=== PATIENT | male | born 1985 | race American Indian/Alaskan Native ===

== ENCOUNTER 2017-05-07 11:38 | Emergency (ER) | payer BC ==
[2017-05-07 11:45] VITALS: BMI 28.5
[2017-05-07 11:49] VITALS: TEMP 98.2
--- NOTE | 2017-05-07 12:03 | C.PDOC ---
History Of Present Illness 32 year old male with no medical PMH, complains of epigastric and LUQ pain for 3 days. Today the pain radiates into the left side of chest which concerned him. Patient has similar abdominal pain for 8 months that worsens after eating. Patient was seen by PMD with a US done that was normal. Patient is currently taking no meds for pain. Denies fever, chills, nausea, or vomiting. No SOB or palpitations. Time Seen by Provider: 05/07/17 12:02 Chief Complaint (Nursing): Chest Pain History Per: Patient History/Exam Limitations: no limitations Onset/Duration Of Symptoms: Days (3) Severity: Mild Location Of Pain/Discomfort: Epigastric, LUQ Radiation Of Pain To:: Chest (Left side) Quality Of Discomfort: "Pain" Associated Symptoms: denies: Fever, Chills, Nausea, Vomiting Exacerbating Factors: None Alleviating Factors: None Recent travel outside of the [place]: No Additional History Per: Patient Past Medical History Reviewed: Historical Data, Nursing Documentation, Vital Signs Vital Signs: Last Vital Signs Temp 98.2 F 05/07/17 11:44 Pulse 72 05/07/17 14:08 Resp 18 05/07/17 14:08 BP 119/81 05/07/17 14:08 Pulse Ox 100 05/07/17 14:08 - Medical History PMH: No Chronic Diseases Surgical History: No Surg Hx Family History: States: Unknown Family Hx - Social History Hx Alcohol Use: No Hx Substance Use: No - Immunization History Hx Tetanus Toxoid Vaccination: No Hx Influenza Vaccination: No Hx Pneumococcal Vaccination: No Review Of Systems Constitutional: Negative for: Fever, Chills Cardiovascular: Positive for: Chest Pain (Left sided, radiation). Negative for : Palpitations Respiratory: Negative for: Shortness of Breath Gastrointestinal: Positive for: Abdominal Pain (LUQ and epigastric). Negative for: Nausea, Vomiting Skin: Negative for: Rash Neurological: Negative for: Weakness, Numbness, Headache, Dizziness Physical Exam - Physical Exam Appears: Non-toxic, No Acute Distress Skin: Normal Color, Warm, Dry Head: Atraumatic, Normacephalic Eye(s): bilateral: Normal Inspection, EOMI Oral Mucosa: Moist Neck: Normal ROM, Supple Chest: Symmetrical, No Tenderness Cardiovascular: Rhythm Regular, No Murmur Respiratory: Normal Breath Sounds, No Rales, No Rhonchi, No Wheezing Gastrointestinal/Abdominal: Soft, Tenderness (Epigastric and LUQ) Back: Normal Inspection, No CVA Tenderness Extremity: Bilateral: Atraumatic, Normal Color And Temperature, Normal ROM Neurological/Psych: Oriented x3, Normal Speech Gait: Steady ED Course And Treatment - Laboratory Results Result Diagrams: 05/07/17 12:38 05/07/17 12:38 ECG: Interpreted By Me, Viewed By Me ECG Rhythm: Sinus Rhythm ECG Interpretation: No Acute Changes Rate From EC O2 Sat by Pulse Oximetry: 100 (RA) Pulse Ox Interpretation: Normal Medical Decision Making Medical Decision Making: Impression: epigastric and LUQ abdominal pain Differential diagnosis includes but not limited to: gastritis, PUD, pancreatitis , constipation Plan: * EKG * Labs * Xray Progress: EKG reviewed with no ischemic changes. XRay shows no mechanical obstruction 1324 On reevaluation, patient reports feeling better and in no distress. Vital signs stable. No longer has any chest or abdominal pain. He is tolerating PO. Discussed results with patient and provide copy of reports. advise dietary changes and will give Rx. Instruct to follow up with MIRANDA Fonseca and GI. Disposition Counseled Patient/Family Regarding: Diagnosis, Need For Followup, Rx Given - Disposition Referrals: Barak Clemente [Staff Provider] - Aashish Fonseca DNP, [employer] [Advanced Practice Nurse] - Disposition: HOME/ ROUTINE Disposition Time: 13:29 Condition: STABLE Additional Instructions: Your labs and XRay were normal. Your pain is likely due to gastritis. Please take Omeprazole daily and follow the diet to help with symptoms. It is important that your follow up with your primary medical doctor and GI for further evaluation and testing including possible endoscopy. Return to the emergency department at any time if symptoms persist or worsen. Prescriptions: Omeprazole 40 mg PO DAILY #30 capsule. Instructions: Gastritis (DC), Diet for Ulcers and Gastritis (ED) Forms: [employer] (Georgian) - POA Present On Arrival: None - Clinical Impression Clinical Impression: Upper abdominal pain, Gastritis - Scribe Statement The provider has reviewed the documentation as recorded by the Shanitaibe Sparkle calvo All medical record entries made by the Scribe were at my direction and personally dictated by me. I have reviewed the chart and agree that the record accurately reflects my personal performance of the history, physical exam, medical decision making, and the department course for this patient. I have also personally directed, reviewed, and agree with the discharge instructions and disposition.
[2017-05-07] MEDS ORDERED: Sodium Chloride 0.9% 1,000 ML IV ONE (12:19)
[2017-05-07] MEDS ORDERED: Aluminum Hydroxide/Magnesium Hydroxide Susp (30 mL) PO STA (12:19)
[2017-05-07 12:21] VITALS: O2SAT 100
[2017-05-07] MEDS ORDERED: Sodium Chloride 0.9% 1,000 ML ONE (12:24)
[2017-05-07] MEDS ORDERED: Aluminum Hydroxide/Magnesium Hydroxide Susp (30 mL) ONE (12:24)
[2017-05-07 12:46] LABS: RBC URINE < 1 /hpf (0-3); URINE BILIRUBIN NEGATIVE (NEGATIVE); URINE BLOOD NEGATIVE (NEGATIVE); URINE COLOR Yellow (YELLOW); URINE GLUCOSE (UA) NORMAL (Normal); URINE KETONE NEGATIVE (NEGATIVE); URINE LEUKOCYTE ESTERASE NEG Leu/uL (Negative); URINE PROTEIN NEGATIVE (NEGATIVE); URINE UROBILINOGEN NORMAL mg/dL (0.2-1.0); WBC URINE < 1 /hpf (0-5)
[2017-05-07 12:48] LABS: BASO % 0.6 % (0.0-2.0); EOS # 0.1 K/uL (0.0-0.7); EOS % 2.4 % (0.0-4.0); HEMATOCRIT 45.6 % (35.0-51.0); LYMPH # 1.7 K/uL (1.0-4.3); LYMPH % 29.2 % (20.0-40.0); MEAN CELL VOLUME 88.8 fL (80.0-94.0); MEAN CORPUSCULAR HEMOGLOBIN 30.1 pg (27.0-31.0); MEAN CORPUSCULAR HGB CONC 33.9 g/dL (33.0-37.0); MEAN PLATELET VOLUME 9.6 fL (7.2-11.7); MONO # 0.4 K/uL (0.0-0.8); MONO % 7.6 % (0.0-10.0); NRBC % 0.1 % (0.0-2.0); RED CELL DISTRIBUTION WIDTH 12.8 % (11.5-14.5); WHITE BLOOD COUNT 5.8 K/uL (4.8-10.8)
[2017-05-07 12:52] LABS: CHLORIDE 99 mmol/L (98-107)
[2017-05-07 12:53] LABS: POTASSIUM 4.2 mmol/L (3.6-5.2); SODIUM 141 mmol/L (132-148)
[2017-05-07 12:55] LABS: ALB/GLOB RATIO 1.3 (1.0-2.1); ALKALINE PHOSPHATASE 49 U/L (38-126); ALT/SGPT 38 U/L (21-72); AST/SGOT 23 U/L (17-59); BILIRUBIN,TOTAL 0.8 mg/dL (0.2-1.3); BLOOD UREA NITROGEN 16 mg/dL (9-20); CARBON DIOXIDE 27 mmol/L (22-30); GFR AFRICAN-AMERICAN > 60; GLUCOSE,RANDOM 89 mg/dL (75-110); TOTAL PROTEIN 7.5 g/dL (6.3-8.3)
[2017-05-07 12:56] LABS: CALCIUM 9.5 mg/dl (8.6-10.4)
--- NOTE | 2017-05-07 13:20 | RAD ---
HISTORY: Abdominal pain. COMPARISON: No prior. FINDINGS: BOWEL: No evidence acute mechanical bowel obstruction. No gross free intraperitoneal air seen on these limited supine views of the abdomen. BONES: Normal. OTHER FINDINGS: None. IMPRESSION: No evidence acute mechanical bowel obstruction.
[2017-05-07 14:08] VITALS: BP 119/81; PULSE 72; RESP 18
--- NOTE | 2017-05-11 22:04 | CARD ---
APPROVED REPORT EKG Measurement Heart [id number] <Conclusion> Normal sinus rhythm Normal ECG
== END 2017-05-07 14:09 | disposition home or self-care (01) ==
LOC: C.ER 11:38
DX: K29.70 Gastritis, unspecified, without bleeding (principal); R10.12 Left upper quadrant pain
CPT/HCPCS: 74000; 80053; 81001; 83690; 85025; 96361; 96374; 99285; J7040